=== PATIENT | male | born 1995 | race Caucasian/White ===

== ENCOUNTER 2023-10-29 11:39 | Day surgery (SDC) | payer OTHER ==
[~2023-10-29] VITALS: Ht 170.2 cm; Wt 69.4 kg
[~2023-10-29 11:39] MED LIST: LIDOCAINE 2%, 20 ML MDV ONE; NORMAL SALINE 10 ML VIAL ONE; iopamidoL 50 ML VIAL IV ONE; methylPREDNISolone ACETATE 40 MG/ML ONE
[2023-10-29 12:11] VITALS: O2SAT 99
[2023-10-29] MEDS ORDERED: DIPHENHYDRAMINE INJ 50 MG/ML VIAL ONE (12:49)
[2023-10-29] MEDS: fentaNYL CITRATE/PF 100 MCG/2 ML AMP ONE (14:18)
[2023-10-29] MEDS: MIDAZOLAM HCL 5 MG/5 ML VIAL ONE (14:20)
[2023-10-30 14:20] VITALS: BP_SYST 110; PULSE 70; RESP 24
== END 2023-10-29 15:10 | disposition home or self-care (01) ==
LOC: SDS 11:39 → SMU 11:40 → SDS 15:10
PROVIDERS: ATTEND Internal Medicine
DX: M53.3 Sacrococcygeal disorders, not elsewhere classified (principal); K21.9 Gastro-esophageal reflux disease without esophagitis; M79.604 Pain in right leg; Z98.890 Other specified postprocedural states
CPT/HCPCS: 27096; J1200; J1030; J2250; J3010; Q9967; 76000; J2001